=== PATIENT | female | born 1990 | race Caucasian/White ===

== ENCOUNTER 2016-12-13 14:57 | Emergency (ER) | payer OTHER ==
[~2016-12-13] VITALS: Ht 157.5 cm; Wt 59.0 kg
[2016-12-13 15:22] VITALS: Ht 157.5 cm; Wt 59.0 kg
--- NOTE | 2016-12-13 16:56 | ERD ---
ER Documentation Chief Complaint Date/Time DATE: 12/13/16 TIME: 16:53 Chief Complaint RIGHT LEG PAIN S/P FALLING DOWN THE STAIRS. DENIES KO. HPI Patient is a 26-year-old female who presents to the ED with right foot pain after sustaining a fall down wooden stairs today at 2 PM.. She states that she tripped over stairs and fell down about 10 steps. She has pain to the top of her foot. She has pain when she walks. Denies radiation of pain up her leg. Denies numbness or tingling. Denies hitting her head, passing out or losing consciousness. Denies headache or dizziness. She has not used any medication or done any treatment for her symptoms. Up-to-date with immunizations. ROS All systems reviewed and are negative except as per history of present illness. Medications Home Meds Active Scripts Naproxen* (Naprosyn*) 500 Mg Tablet, 500 MG PO BID Y for PAIN AND/OR INFLAMMATION, #30 TAB Prov:DEWAYNE STEELE PA-C 12/13/16 Allergies Allergies: Coded Allergies: No Known Allergy (Unverified , 12/13/16) PMhx/Soc History of Surgery: No Anesthesia Reaction: No Hx Neurological Disorder: No Hx Respiratory Disorders: No Hx Cardiac Disorders: No Hx Psychiatric Problems: No Hx Miscellaneous Medical Probl: No Hx Alcohol Use: No Hx Substance Use: No Hx Tobacco Use: No Physical Exam Vitals Vital Signs Date Time Temp Pulse Resp B/P Pulse Ox O2 Delivery O2 Flow Rate FiO2 12/13/16 15:22 99.5 88 18 115/69 99 Physical Exam GENERAL: Well-developed, well-nourished female. Appears in no acute distress. LUNG: Clear to auscultation bilaterally. No rhonchi, wheezing, rales or coarse breath sounds. HEART: Regular rate and rhythm. No murmurs, rubs or gallops. Extremities: Equal pulses bilaterally. No peripheral clubbing, cyanosis or edema. No unilateral leg swelling. Tenderness to the dorsal aspect of her foot and lateral malleoli. No open wounds or laceration. No step-offs or deformities. Pulses intact. Range of motion intact. Negative Homans sign. No proximal fibular pain. NEUROLOGIC: Alert and oriented. Moving all four extremities. 5/5 strength in all extremities. Normal speech. Steady gait. SKIN: Normal color. Warm and dry. No rashes or lesions. Capillary refill < 2 seconds Results 24 hrs Current Medications Medications (Trade) Dose Ordered Sig/Lance Route PRN Reason Start Time Stop Time Status Last Admin Dose Admin Ibuprofen (Motrin) 600 mg ONCE ONCE PO 12/13/16 17:00 12/13/16 17:01 DC 12/13/16 16:45 Procedures/MDM ER COURSE: I kept the patient and/or family informed of laboratory and diagnostic imaging results throughout the emergency room course. IMAGING STUDIES [place] [address] Radiology Main Line: [phone] DIAGNOSTIC IMAGING REPORT Patient: TRISTON HUMPHRIES : 1990 Age: 26 Sex: F MR #: [id number] DOS: 12/13/16 1654 Ordering MD: DEWAYNE STEELE PA-C Location: [facility] Room/Bed: PROCEDURE: XR right ankle. CLINICAL INDICATION: Ankle pain TECHNIQUE: Three views are available for review. COMPARISON: None available FINDINGS: The osseous structures are normal in mineralization, architecture and alignment. No fracture or osseous lesion is identified. The joints are unremarkable. The soft tissues are unremarkable. IMPRESSION: Unremarkable examination. RPTAT: HGDB .Rafael Watts MD, Date Time Electronically viewed and signed by .Rafael Watts MD, on 12/13/2016 17:29 .B/ CC: DEWAYNE STEELE PA-C [place] [address] Radiology Main Line: [phone] DIAGNOSTIC IMAGING REPORT Patient: TRISTON HUMPHRIES : 1990 Age: 26 Sex: F MR #: [id number] DOS: 12/13/16 1633 Ordering MD: DEWAYNE STEELE PA-C Location: [facility] Room/Bed: PROCEDURE: XR right foot. CLINICAL INDICATION: Foot pain TECHNIQUE: Three views are available for review. COMPARISON: None available FINDINGS: The osseous structures are normal in mineralization, architecture and alignment. No fracture or osseous lesion is identified. The joints are unremarkable. The soft tissues are unremarkable. IMPRESSION: Unremarkable examination. RPTAT: HGDB .Rafael Watts MD, MD Date Time Electronically viewed and signed by .Rafael Watts MD, on 12/13/2016 17:22 .B/ CC: DEWAYNE STEELE PA-C MEDICATIONS Ibuprofen 600. Tolerated well with no adverse reaction. MEDICAL DECISION MAKING: This is a 26-year-old female who presents with right foot pain after sustaining a fall. Vital signs were reviewed. Patient is afebrile. Patient is not hypoxic. Patient is not toxic or ill-appearing. X-rays read by radiologist is unremarkable. Patient likely has Low suspicion for dislocation, fracture, septic joint, compartment syndrome, osteomyelitis, avascular necrosis, DVT, Achilles tendon rupture, cellulitis. At this time, unable to rule out any tendon and ligament injuries. [Papi wrap Assessment: Neurovascularly intact post papi wrap placement with good fit.] Patient's extremity symptoms have stabilized while they have been evaluated in the department and are appropriate for outpatient follow up. DISCHARGE: At this time, patient is stable for discharge and outpatient management with no new complaints during the ER course. Patient was sent home with Papi wrap, crutches, Naprosyn for pain and a note for work. Patient will be discharged home with instructions to recheck for new or worsening symptoms such as fever, nausea, weakness, LOC and to follow up with primary care in the next 1-2 days. Patient was advised to return to the ER for any new or worsening symptoms. Plan was discussed and patient and/or family understands and agrees. Home instructions were given. Departure Diagnosis: Primary Impression: Foot pain, right Condition: Stable DEWAYNE STEELE PA-C Dec 13, 2016 16:56
[2016-12-13] MEDS ORDERED: IBUPROFEN 600 MG TAB PO ONE (17:00)
--- NOTE | 2016-12-13 17:22 | RADRPT ---
PROCEDURE: XR right foot. CLINICAL INDICATION: Foot pain TECHNIQUE: Three views are available for review. COMPARISON: None available FINDINGS: The osseous structures are normal in mineralization, architecture and alignment. No fracture or osse ous lesion is identified. The joints are unremarkable. The soft tissues are unremarkable. IMPRESSION: Unremarkable examination. RPTAT: HGDB .Rafael Watts MD, MD Date Time Electronically viewed and signed by .Rafael Watts MD, on 12/13/2016 17:22 .B/
--- NOTE | 2016-12-13 17:29 | RADRPT ---
PROCEDURE: XR right ankle. CLINICAL INDICATION: Ankle pain TECHNIQUE: Three views are available for review. COMPARISON: None available FINDINGS: The osseous structures are normal in mineralization, architecture and alignment. No fracture or osse ous lesion is identified. The joints are unremarkable. The soft tissues are unremarkable. IMPRESSION: Unremarkable examination. RPTAT: HGDB .Rafael Watts MD, MD Date Time Electronically viewed and signed by .Rafael Watts MD, on 12/13/2016 17:29 .B/
[2016-12-13] MEDS ORDERED: NAPR-260 PO (17:42)
[2016-12-13 18:32] VITALS: BP 122/69; PULSE 88; RESP 16; TEMP 98.9
== END 2016-12-13 18:33 | disposition home or self-care (01) ==
LOC: FTE 14:57
DX: S99.921A Unspecified injury of right foot, initial encounter (principal); W10.8XXA Fall (on) (from) other stairs and steps, initial encounter; Y92.9 Unspecified place or not applicable
CPT/HCPCS: 73610; 73630; Z7502; Z7610

== ENCOUNTER 2017-08-06 17:05 | Emergency (ER) | payer SELFPAY ==
[~2017-08-06] VITALS: Ht 157.5 cm; Wt 66.0 kg
[~2017-08-06 17:05] MED LIST: NAPR-260 PO
[2017-08-06 17:08] VITALS: Ht 157.5 cm; Wt 66.0 kg
--- NOTE | 2017-08-06 18:11 | ERD ---
ER Documentation Chief Complaint Chief Complaint pt bib self with c/o left knee pain x 2 days, fall a few months ago HPI Otherwise healthy 27-year-old female presents with a chief complaints of left knee pain. Denies trauma. Intermittent pain described as sharp and 6/10 when it occurs. Pain started worsening 2 days ago. Her left ankle 2 months ago. Patient states that the knee pain is worse with sitting for long drives, walking downhill. Has used heat without relief. No medications taken for discomfort. Denies fever, chills, nausea, abdominal pain, numbness, tingling, loss of range of motion. No other aggravating or alleviating factors. Patient has no other complaints and describes no other associated manifestations. ROS All systems reviewed and are negative except as per history of present illness. Medications Home Meds Active Scripts Naproxen* (Naprosyn*) 500 Mg Tablet, 500 MG PO BID Y for PAIN AND/OR INFLAMMATION, #30 TAB Prov:DEWAYNE STEELE PA-C 12/13/16 Allergies Allergies: Coded Allergies: No Known Allergy (Unverified , 08/06/17) PMhx/Soc History of Surgery: No Anesthesia Reaction: No Hx Neurological Disorder: No Hx Respiratory Disorders: No Hx Cardiac Disorders: No Hx Psychiatric Problems: No Hx Miscellaneous Medical Probl: No Hx Alcohol Use: No Hx Substance Use: No Hx Tobacco Use: No Physical Exam Vitals Vital Signs Date Time Temp Pulse Resp B/P Pulse Ox O2 Delivery O2 Flow Rate FiO2 08/06/17 17:08 97.9 84 16 112/69 97 Physical Exam Const: Well-appearing happy 27-year-old female in NAD Ext: No cyanosis, or edema. Negative Sophy's test. No valgus or varus laxity. Negative apprehension test. Achilles intact. Negative Lockman's. Negative Yoly's. Negative anterior posterior drawers. No tenderness palpation. No warmth or erythema. Skin: No petechiae or rashes Head: Atraumatic Eyes: Normal Conjunctiva. PERRLA, EOMI. Neck: Full range of motion..~ No meningismus. Resp: Equal chest expansion. No tripoding or use of accessory muscles. Cardio: Cap refill less than 2 seconds. Pulses 2+ bilaterally. Back: No midline or flank tenderness Neur: Awake and alert. Sensation intact. Psych: Normal Mood and Affect Procedures/MDM 27-year-old female presents with a chief complaint of left knee pain. No trauma. No fever or chills. No warmth or tenderness. No trauma. Positive movie theater sign. Worse with walking downhill. Negative Sophy's test. Most likely diagnosis is patellofemoral syndrome versus IT band syndrome. Little suspicion I have no suspicion for bony pathology or neurovascular compromise. I have suggested follow-up with PCP next 1-3 days for possible referral to a specialist/PT. I have educated and recommended rice therapy. I have spoke with the patient regarding their condition and future management. They have verbally responded that they understand their status and treatment plan. The patients vitals are stable, and their current condition is appropriate for discharge. The patient will be given discharge instructions with return precautions. Departure Diagnosis: Primary Impression: Knee pain Chronicity: acute Laterality: left Qualified Code: M25.562 - Acute pain of left knee Condition: Stable Patient Instructions: Knee Pain, Uncertain Cause Additional Instructions: Follow up with your PCP within the next 1-3 days for a more thorough evaluation and a possible referral to a specialist. Return the the emergency department immediately if symptoms worsen or change. If you have any questions regarding medications, ask your pharmacist or us before you leave. If any adverse reactions occur while taking your medications, discontinue the treatment and return to the emergency department immediately. Take your medications as directed, and complete the entire course of treatment. RSOE MO PA-C Aug 06, 2017 18:11
== END 2017-08-06 18:05 | disposition home or self-care (01) ==
LOC: FTE 17:05
DX: M25.562 Pain in left knee (principal)
CPT/HCPCS: 99282

== ENCOUNTER 2017-09-05 11:54 | Emergency (ER) | END 2017-09-05 14:13 | disposition home or self-care (01) ==